=== PATIENT | male | born 1970 | race Caucasian/White ===

== ENCOUNTER 2017-09-17 01:33 | Emergency (ER) | payer MEDICARE ==
[2017-09-17] MEDS ORDERED: Permethrin 5% Cream 60 GM TUBE TOP SCH (02:15)
[2017-09-17] MEDS ORDERED: Acetaminophen 500 MG TAB ONE (11:22)
[2017-09-17] MEDS ORDERED: Ibuprofen 200 MG TAB ONE (16:21)
[2017-09-17] MEDS ORDERED: Ketorolac Tromethamine 60 MG/2 ML VIAL ONE (17:03)
[2017-09-17] MEDS ORDERED: Lorazepam 2 MG/ML VIAL ONE (17:19)
--- NOTE | 2017-09-17 17:55 | CT ---
CT OF THE CERVICAL SPINE WITHOUT CONTRAST 09/17/17 COMPARISON: 10/23/09 HISTORY: Fall in shower with C-spine pain. TECHNIQUE: Multiple contiguous axial images were obtained in a CT of the cervical spine without contrast. Sagitt al and coronal reformats were performed. FINDINGS: There are moderate degenerative changes in the lower cervical spine with intervertebral disc space na rrowing. There is a lucency seen in the left aspect of the C2 ring. This appears well corticated and is likely chronic and likely does not represent an acute fracture. More inferiorly at the C4 level, t here are bilateral lucencies through the posterior elements. These also appear corticated and are non specific. These likely do not represent acute fractures. The lucencies seen on this exam are stable c ompared to the exam from 2009. No other fractures are seen in the cervical spine. No prevertebral sof t tissue swelling is seen. The posterior facets are well aligned. Normal alignment of the skull base with the cervical spine is seen. IMPRESSION: Abnormalities in the posterior elements of C2 and C4 most likely do not represent fractures. These ar e either congenital or sequela from remote trauma. No acute fracture is identified. POS: [facility]
--- NOTE | 2017-09-17 18:11 | CT ---
CT OF THE BRAIN WITHOUT CONTRAST: 09/17/17 COMPARISON: 01/24/14 HISTORY: Fell in the shower and hit head with headache. TECHNIQUE: Multiple contiguous axial images were obtained in a CT of the brain without contrast. FINDINGS: The brain is normal in morphology and attenuation without focal lesions or confluent areas of infarct ion. There is no evidence of hydrocephalus, intracranial hemorrhage or extra-axial fluid collection. The calvarium and overlying soft tissues are unremarkable. The visualized paranasal sinuses and masto id air cells are well aerated. IMPRESSION: No evidence of acute intracranial abnormality. POS: [facility]
--- NOTE | 2017-09-17 18:22 | RAD ---
SINGLE VIEW OF THE CHEST 09/17/17 COMPARISON: Chest x-ray and rib series of 09/12/17. HISTORY: Fall in shower with left rib pain. FINDINGS: Single view of the chest shows a normal sized cardiomediastinal silhouette. There is no evidence of c onsolidation, mass, pneumothorax or pleural effusion. One of the patient's left rib fractures is able to be visualized. IMPRESSION: Unchanged left rib fracture without acute cardiopulmonary disease. POS: [facility]
== END 2017-09-17 18:56 ==
LOC: ERS 01:33
DX: R45.851 Suicidal ideations (principal); B86 Scabies; K21.9 Gastro-esophageal reflux disease without esophagitis; F31.9 Bipolar disorder, unspecified; F20.9 Schizophrenia, unspecified; F17.290 Nicotine dependence, other tobacco product, uncomplicated
CPT/HCPCS: 70450; 71045; 72125; 96372; J1885; J2060

== ENCOUNTER 2017-10-25 07:29 | Inpatient (IN) | payer MEDICARE, SELFPAY ==
[2017-10-25 08:06] LABS: #Basophils 0.1 thou/uL (0.0-0.2); #Eosinphils 0.1 thou/uL (0.0-0.7); #Lymphocytes 2.3 thou/uL (1.20-3.40); #Monocytes 1.4 thou/uL (0.11-0.59); #Neutrophils 8.2 thou/uL (1.40-6.50); %Basophils 0.7 % (0.0-1.0); %Lymphocytes 19.2 % (21.0-51.0); %Monocytes 11.3 % (0.0-10.0); %Neutrophils 67.8 % (42.0-75.0); Hemoglobin 14.6 g/dL (14.0-18.0); Mean Corpuscular HGB CONC 34.2 g/dL (32.0-36.0); Mean Corpuscular Hemoglobin 33.7 pg (27.0-31.0); Mean Corpuscular Volume 98.4 fL (78.0-98.0); Mean Platelet Volume 7.5 fL (7.4-10.4); Platelet Count 283 thou/uL (130-400); RBC Distribution Width 11.5 % (11.5-14.5); Red Blood Cell (RBC) Count 4.34 mill/uL (4.70-6.10); White Blood Cell (WBC) Count 12.1 thou/uL (4.8-10.8)
[2017-10-25] MEDS ORDERED: Permethrin 5% Cream 60 GM TUBE TOP SCH (08:15)
[2017-10-25 08:36] LABS: ALT (SGPT) 107 U/L (8-55); AST (SGOT) 89 U/L (5-34); Acetaminophen Less than 6.0 mcg/mL (10.0-30.0); Albumin 4.6 g/dL (3.5-5.0); Alcohol Less than 10 mg/dL (Less than 10); Alkaline Phosphatase 110 U/L (40-150); Anion Gap 13 mmol/L (10-20); BUN (Urea Nitrogen) 27 mg/dL (8.9-20.6); Bilirubin, Total 1.4 mg/dL (0.2-1.2); CK (CPK) 1046 U/L (30-200); Calc. Creatinine Clearance 0 mL/min (70-130); Calcium 9.8 mg/dL (7.8-10.44); Carbon Dioxide 25 mmol/L (22-29); Chloride 96 mmol/L (98-107); Estimated GFR-MDRD 82; Globulin 4.1 g/dL (2.4-3.5); Glucose 97 mg/dL (70-105); Potassium 3.4 mmol/L (3.5-5.1); Protein, Total 8.7 g/dL (6.0-8.3); Salicylate Less than 8.0 mg/dL (15.0-30.0); Sodium 131 mmol/L (136-145)
[2017-10-25 09:06] LABS: Bilirubin Negative (Negative); Blood, Urine Negative (Negative); Clarity CLEAR (Clear); Glucose, Urine (Dipstick) Negative (Negative); Leukocyte Negative (Negative); Nitrite Negative (Negative); Protein, Urine (Dipstick) 30 mg/dL (Neg-Trace); Specific Gravity, Urine 1.022 (1.002-1.036)
[2017-10-25 09:09] LABS: Bacteria/HPF None Seen HPF (None Seen); Hyaline Casts/LPF 4-6 HYALINE CAST LPF (0-3 Hyaline); Pathc Cast-AUWi Flag 0.58 (0-2.49); Squamous Epithelial None Seen HPF (0-3); WBC/HPF 0-3 HPF (0-3)
--- NOTE | 2017-10-25 09:13 | ULT ---
ULTRASOUND WITH DOPPLER DUPLEX VENOUS LOWER EXTREMITY LEFT CPT: 36302 ICD-10-PCS: [id number] HISTORY: Left leg edema, erythema. TECHNIQUE: Color flow Doppler, spectral waveform analysis of pulsed Doppler, and regan-scale imaging with dave elizabeth and augmentation, were used to evaluate the bilateral common femoral, femoral, popliteal, racing car driver ior tibial, and superficial femoral, veins; and the proximal portions of the profunda femoral and gre ater saphenous, veins. FINDINGS: Appropriate compressibility and flow within the imaged deep vein system of left lower extremity. Inc idental note of lymph nodes. IMPRESSION: 1. No deep vein thrombosis of the left lower extremity. 2. Incidental note of lymph nodes. Recommend clinical correlation in this regard. POS: [facility]
[2017-10-25] MEDS ORDERED: cefTRIAXone\\ROCEPHIN 2 GM VIAL ONE (09:23)
[2017-10-25 11:52] VITALS: BMI 20.9
[2017-10-25 12:12] LABS: Amphetamine Detected (NotDetected); Barbiturates Screen Not Detected (NotDetected); Benzodiazepine Screen Not Detected (NotDetected); Cocaine Metabolite Screen Detected (NotDetected); Medtox Control Line Valid? VALID (VALID); Medtox Reader # READER 1; Methadone Not Detected (NotDetected); Methamphetamine Detected (NotDetected); Opiate Screen Not Detected (NotDetected); Oxycodone Screen Not Detected (NotDetected); Phencyclidine (PCP) Not Detected (NotDetected); THC/Cannabinoid Screen Detected (NotDetected); Tricyclic Screen Detected (NotDetected)
[2017-10-25] MEDS ORDERED: Vancomycin HCl 1.5 GM in Sodium Chloride 0.9% 250 ML 300 ML IVPB SCH (13:00)
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
[2017-10-25] MEDS: Piperacillin/Tazobactam 3.375 GM in Sodium Chloride 0.9% 100 ML IVPB SCH ×3 (13:58→20:57)
[2017-10-25] MEDS: Sodium Chloride 0.9% 1,000 ML IV SCH ×2 (13:58→16:50)
[2017-10-25] MEDS: diphenhydrAMINE 25 MG CAP PO PRN (17:30)
[2017-10-26] MEDS: Vancomycin HCl 1 GM in Premix Bag 1 BAG IVPB SCH ×2 (00:50→12:13)
[2017-10-26] MEDS: Piperacillin/Tazobactam 3.375 GM in Sodium Chloride 0.9% 100 ML IVPB SCH ×4 (02:53→21:36)
[2017-10-26 05:05] LABS: #Eosinphils 0.3 thou/uL (0.0-0.7); #Lymphocytes 1.9 thou/uL (1.20-3.40); #Monocytes 0.9 thou/uL (0.11-0.59); #Neutrophils 4.8 thou/uL (1.40-6.50); %Basophils 0.4 % (0.0-1.0); %Eosinophils 3.6 % (0.0-10.0); %Lymphocytes 23.8 % (21.0-51.0); %Neutrophils 61.2 % (42.0-75.0); Hemoglobin 13.1 g/dL (14.0-18.0); Mean Corpuscular Volume 99.8 fL (78.0-98.0); Mean Platelet Volume 7.4 fL (7.4-10.4); Platelet Count 249 thou/uL (130-400); RBC Distribution Width 11.4 % (11.5-14.5); Red Blood Cell (RBC) Count 3.98 mill/uL (4.70-6.10); White Blood Cell (WBC) Count 7.9 thou/uL (4.8-10.8)
[2017-10-26 05:26] LABS: Anion Gap 9 mmol/L (10-20); BUN (Urea Nitrogen) 11 mg/dL (8.9-20.6); Calc. Creatinine Clearance 99 mL/min (70-130); Calcium 8.5 mg/dL (7.8-10.44); Carbon Dioxide 25 mmol/L (22-29); Chloride 104 mmol/L (98-107); Estimated GFR-MDRD Greater than 90; Glucose 85 mg/dL (70-105); Potassium 3.2 mmol/L (3.5-5.1); Sodium 135 mmol/L (136-145)
[2017-10-26] MEDS: diphenhydrAMINE 25 MG CAP PO PRN ×3 (08:23→21:37)
--- NOTE | 2017-10-26 14:33 | PDOC.PN ---
- Subjective Encounter Start Date: 10/26/17 Encounter Start Time: 14:25 Subjective: f/u for cellulitis LE's on Zosyn and Vancomycin. Still with some redness -: and itching. States he was "shooting up" in LE's with drugs. - Objective MAR Reviewed: Yes Vital Signs & Weight: Vital Signs (12 hours) Temp Pulse Resp BP Pulse Ox 10/26/17 08:25 98.4 F 64 16 99 10/26/17 07:26 98.4 F 64 16 107/57 L 99 I&O: 10/25/17 10/26/17 10/27/17 06:59 06:59 06:59 Intake Total 1130 Balance 1130 Result Diagrams: 10/26/17 04:33 10/26/17 04:33 Additional Labs: Microbiology 10/25/17 07:55 Venous blood - Right Hand Blood Culture - Preliminary Specimen has been received and culture in progress. No Growth to date. 10/25/17 07:55 Venous blood - Right Arm Blood Culture - Preliminary Specimen has been received and culture in progress. No Growth to date. Laboratory Tests 10/25/17 10/25/17 10/25/17 07:57 07:57 07:57 WBC 12.1 H Sodium 131 L Potassium 3.4 L Total Bilirubin 1.4 H AST 89 H ALT 107 H Creatine Kinase 1046 H TSH 3rd Generation 0.6441 Ur Tricyclics Screen Ur Amphetamines Screen U Methamphetamines Scrn U Cocaine Metab Screen U Cannabinoids Screen 10/25/17 08:58 WBC Sodium Potassium Total Bilirubin AST ALT Creatine Kinase TSH 3rd Generation Ur Tricyclics Screen Detected H Ur Amphetamines Screen Detected H U Methamphetamines Scrn Detected H U Cocaine Metab Screen Detected H U Cannabinoids Screen Detected H Radiology Reviewed by me: Yes (BLE venous dopp - neg for DVT) Phys Exam - Physical Examination Constitutional: NAD HEENT: PERRLA, sclera anicteric, oral pharynx no lesions Neck: no nodes, no JVD, supple, full ROM Respiratory: no wheezing, no rales, no rhonchi, clear to auscultation bilateral S1, S2 Cardiovascular: RRR, no significant murmur, no rub, gallop Gastrointestinal: soft, non-tender, no distention, positive bowel sounds Musculoskeletal: pulses present, edema present Neurological: normal sensation, moves all 4 limbs Psychiatric: normal affect, A&O x 3 Deviation from normal: LE erythema diffusely below the knees, small puncture sites noted multiple tattoos noted Skin: cap refill <2 seconds Dx/Plan (1) Bilateral lower leg cellulitis Code(s): L03.116 - CELLULITIS OF LEFT LOWER LIMB; L03.115 - CELLULITIS OF RIGHT LOWER LIMB Status: Acute Comment: Continue Zosyn and Vancomycin, local skin care (2) Polysubstance abuse Code(s): F19.10 - OTHER PSYCHOACTIVE SUBSTANCE ABUSE, UNCOMPLICATED Status: Acute Comment: [facility] consult for resources (3) Scabies Status: Acute Comment: s/p Permethrin, contact precautions (4) Suicidal ideation Code(s): R45.851 - SUICIDAL IDEATIONS Status: Acute Comment: Sitter 1:1, [facility] evaluation 10/27/17 (5) Rhabdomyolysis Code(s): M62.82 - RHABDOMYOLYSIS Status: Acute Comment: Secondary to IV drug use, continue IVF's, repeat CPK in am (6) Hyponatremia Code(s): E87.1 - HYPO-OSMOLALITY AND HYPONATREMIA Status: Acute Comment: Likely chronic due to ETOH abuse, serial monitoring (7) Hypokalemia Code(s): E87.6 - HYPOKALEMIA Status: Acute Comment: K-Dur 40meq BID, repeat K+ level in am - Plan continue antibiotics, PT/OT, 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
[2017-10-26] MEDS: Potassium Chloride 20 MEQ TAB PO SCH (16:27)
[2017-10-26] MEDS: Nicotine 21 MG PATCH TD SCH (16:28)
[2017-10-26] MEDS ORDERED: Lorazepam 1 MG TAB PO SCH (19:15)
[2017-10-26] MEDS: Cyclobenzaprine 10 MG TAB PO PRN (21:37)
[2017-10-27 00:51] LABS: Vancomycin, Trough 9.8 ug/mL
[2017-10-27] MEDS: Lorazepam 1 MG TAB PO SCH ×5 (01:11→23:45)
[2017-10-27] MEDS: Vancomycin HCl 1 GM in Premix Bag 1 BAG IVPB SCH ×3 (01:11→18:37)
[2017-10-27] MEDS ORDERED: VANCOMYCIN IVPB PRN (01:42)
[2017-10-27] MEDS: Piperacillin/Tazobactam 3.375 GM in Sodium Chloride 0.9% 100 ML IVPB SCH ×2 (04:47→11:03)
[2017-10-27 06:35] LABS: ALT (SGPT) 46 U/L (8-55); AST (SGOT) 31 U/L (5-34); Albumin 3.3 g/dL (3.5-5.0); Alkaline Phosphatase 72 U/L (40-150); Anion Gap 11 mmol/L (10-20); BUN (Urea Nitrogen) 7 mg/dL (8.9-20.6); Bilirubin, Total 0.5 mg/dL (0.2-1.2); CK (CPK) 149 U/L (30-200); Calc. Creatinine Clearance 102 mL/min (70-130); Calcium 8.4 mg/dL (7.8-10.44); Carbon Dioxide 24 mmol/L (22-29); Chloride 106 mmol/L (98-107); Estimated GFR-MDRD Greater than 90; Globulin 2.9 g/dL (2.4-3.5); Glucose 93 mg/dL (70-105); Potassium 3.5 mmol/L (3.5-5.1); Protein, Total 6.2 g/dL (6.0-8.3); Sodium 137 mmol/L (136-145)
[2017-10-27 06:44] LABS: Band 1 % (5-11); Eosinophils 8 % (0-10); Hemoglobin 12.5 g/dL (14.0-18.0); Lymphocytes 30 % (21-51); MDiff Complete? YES; Mean Corpuscular HGB CONC 34.7 g/dL (32.0-36.0); Mean Corpuscular Hemoglobin 34.3 pg (27.0-31.0); Mean Corpuscular Volume 98.9 fL (78.0-98.0); Mean Platelet Volume 7.6 fL (7.4-10.4); Monocytes 8 % (0-10); Neutrophil 52 % (42-75); Platelet Count 243 thou/uL (130-400); RBC Distribution Width 11.5 % (11.5-14.5); Red Blood Cell (RBC) Count 3.66 mill/uL (4.70-6.10)
[2017-10-27] MEDS: Potassium Chloride 20 MEQ TAB PO SCH (08:03)
[2017-10-27] MEDS: diphenhydrAMINE 25 MG CAP PO PRN ×2 (08:21→18:37)
--- NOTE | 2017-10-27 11:59 | PDOC.PN ---
- Subjective Encounter Start Date: 10/27/17 Encounter Start Time: 11:45 Subjective: f/u for bilat LE cellulitis after IVDU. Tx with Vancomycin/Zosyn -: and feels better overall. Ambulating, eating appropriately. No fever -: or chills. - Objective MAR Reviewed: Yes Vital Signs & Weight: Vital Signs (12 hours) Temp Pulse Resp BP Pulse Ox 10/27/17 08:00 97.9 F 76 18 98 10/27/17 07:21 97.9 F 76 18 116/76 98 10/27/17 01:13 98.4 F 72 16 107/66 99 I&O: 10/26/17 10/27/17 10/28/17 06:59 06:59 06:59 Intake Total 1130 375 Balance 1130 375 Result Diagrams: 10/27/17 04:43 10/27/17 05:54 Additional Labs: Microbiology 10/25/17 07:55 Venous blood - Right Hand Blood Culture - Preliminary Specimen has been received and culture in progress. No Growth to date. 10/25/17 07:55 Venous blood - Right Arm Blood Culture - Preliminary Specimen has been received and culture in progress. No Growth to date. Laboratory Tests 10/25/17 10/25/17 10/25/17 07:57 07:57 07:57 WBC 12.1 H Sodium 131 L Potassium 3.4 L Total Bilirubin 1.4 H AST 89 H ALT 107 H Creatine Kinase 1046 H TSH 3rd Generation 0.6441 Ur Tricyclics Screen Ur Amphetamines Screen U Methamphetamines Scrn U Cocaine Metab Screen U Cannabinoids Screen 10/25/17 08:58 WBC Sodium Potassium Total Bilirubin AST ALT Creatine Kinase TSH 3rd Generation Ur Tricyclics Screen Detected H Ur Amphetamines Screen Detected H U Methamphetamines Scrn Detected H U Cocaine Metab Screen Detected H U Cannabinoids Screen Detected H Phys Exam - Physical Examination Constitutional: NAD HEENT: PERRLA, sclera anicteric, oral pharynx no lesions Neck: no nodes, no JVD, supple, full ROM Respiratory: no wheezing, no rales, no rhonchi, clear to auscultation bilateral S1, S2 Cardiovascular: RRR, no significant murmur, no rub, gallop Gastrointestinal: soft, non-tender, no distention, positive bowel sounds mild edema LE's Musculoskeletal: pulses present Neurological: non-focal, normal sensation, moves all 4 limbs Psychiatric: normal affect, A&O x 3 Deviation from normal: multiple punctate areas on lower extremities Skin: normal turgor, cap refill <2 seconds Dx/Plan (1) Bilateral lower leg cellulitis Code(s): L03.116 - CELLULITIS OF LEFT LOWER LIMB; L03.115 - CELLULITIS OF RIGHT LOWER LIMB Status: Acute Comment: Start Augmentin 875mg BID, d/c Vanc/Zosyn , local skin care (2) Polysubstance abuse Code(s): F19.10 - OTHER PSYCHOACTIVE SUBSTANCE ABUSE, UNCOMPLICATED Status: Acute Comment: [facility] consult for resources, recommendations for inpatient psych care and awaiting [place] approval (3) Scabies Status: Acute Comment: s/p Permethrin, contact precautions (4) Suicidal ideation Code(s): R45.851 - SUICIDAL IDEATIONS Status: Acute Comment: Sitter 1:1, [facility] evaluation recommends inpt psych (5) Rhabdomyolysis Code(s): M62.82 - RHABDOMYOLYSIS Status: Acute Comment: Secondary to IV drug use, resolving (6) Hyponatremia Code(s): E87.1 - HYPO-OSMOLALITY AND HYPONATREMIA Status: Acute Comment: Likely chronic due to ETOH abuse, serial monitoring (7) Hypokalemia Code(s): E87.6 - HYPOKALEMIA Status: Acute Comment: K-Dur 40meq BID, resolving, d/c KCL - 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
[2017-10-27] MEDS: Nicotine 21 MG PATCH TD SCH (15:48)
[2017-10-27] MEDS: Piperacillin/Tazobactam 3.375 GM, Admixture Fee 1 EACH in Sodium Chloride 0.9% 100 ML IVPB SCH ×2 (17:49→23:44)
[2017-10-28 00:46] LABS: Vancomycin, Trough 55.6 ug/mL
[2017-10-28] MEDS: Vancomycin HCl 1 GM in Premix Bag 1 BAG IVPB SCH (00:50)
[2017-10-28] MEDS: Piperacillin/Tazobactam 3.375 GM, Admixture Fee 1 EACH in Sodium Chloride 0.9% 100 ML IVPB SCH ×3 (05:50→15:46)
[2017-10-28] MEDS: Lorazepam 1 MG TAB PO SCH ×4 (05:50→23:53)
[2017-10-28] MEDS: diphenhydrAMINE 25 MG CAP PO PRN ×2 (10:05→21:04)
--- NOTE | 2017-10-28 13:35 | DIS ---
DATE OF ADMISSION: 10/25/2017 DATE OF DISCHARGE: 10/27/2017 DISCHARGE DIAGNOSES: 1. Bilateral lower extremity cellulitis, secondarily to IV drug use. 2. Polysubstance abuse including amphetamines, cocaine, and cannabinoids. 3. Question of scabies, treated with permethrin. 4. Suicidal ideation.
[2017-10-28] MEDS: Nicotine 21 MG PATCH TD SCH (15:46)
--- NOTE | 2017-10-28 17:04 | PDOC.PN ---
- Subjective Encounter Start Date: 10/28/17 Encounter Start Time: 17:02 Feels like his legs are doing better. Itching. - Objective Vital Signs & Weight: Vital Signs (12 hours) Temp Pulse Resp BP Pulse Ox 10/28/17 08:00 97.9 F 79 16 99 10/28/17 07:18 97.9 F 79 16 115/77 100 I&O: 10/27/17 10/28/17 10/29/17 06:59 06:59 06:59 Intake Total 375 1320 360 Balance 375 1320 360 Result Diagrams: 10/27/17 04:43 10/27/17 05:54 Phys Exam - Physical Examination Constitutional: NAD Neck: no JVD, supple Respiratory: no wheezing, no rales, no rhonchi, clear to auscultation bilateral Cardiovascular: RRR, no significant murmur Patchy B LE erythema from mid-calf to lower thigh. Posterion on left, anterior on right. Psychiatric: normal affect, A&O x 3 Dx/Plan (1) Bilateral lower leg cellulitis Code(s): L03.116 - CELLULITIS OF LEFT LOWER LIMB; L03.115 - CELLULITIS OF RIGHT LOWER LIMB Status: Acute Comment: Start Augmentin 875mg BID, d/c Vanc/Zosyn , local skin care (2) Polysubstance abuse Code(s): F19.10 - OTHER PSYCHOACTIVE SUBSTANCE ABUSE, UNCOMPLICATED Status: Acute Comment: [facility] consult for resources, recommendations for inpatient psych care and awaiting [place] approval (3) Suicidal ideation Code(s): R45.851 - SUICIDAL IDEATIONS Status: Acute Comment: Sitter 1:1, [facility] evaluation recommends inpt psych - Plan * Change to po abx. * Await [facility] placement. * Attempt to clarify and resume his home psych meds.
[2017-10-28] MEDS: Amoxicillin/Potassium Clav 875 MG TAB PO SCH (21:04)
[2017-10-29 00:39] LABS: Vancomycin, Random 4.4 ug/mL (See Comment)
[2017-10-29] MEDS ORDERED: Vancomycin HCl 1 GM in Premix Bag 1 BAG IVPB SCH (01:00)
[2017-10-29] MEDS: Lorazepam 1 MG TAB PO SCH ×5 (06:20→23:26)
[2017-10-29] MEDS: diphenhydrAMINE 25 MG CAP PO PRN ×2 (07:35→21:05)
[2017-10-29] MEDS: Amoxicillin/Potassium Clav 875 MG TAB PO SCH ×2 (07:35→21:06)
--- NOTE | 2017-10-29 08:35 | PDOC.PN ---
- Subjective Encounter Start Date: 10/29/17 Encounter Start Time: 08:33 Feels like his legs are a little better. - Objective Vital Signs & Weight: Vital Signs (12 hours) Temp Pulse Resp BP Pulse Ox 10/29/17 07:37 98.0 F 71 18 145/93 H 99 I&O: 10/28/17 10/29/17 10/30/17 06:59 06:59 06:59 Intake Total 1320 600 Balance 1320 600 Result Diagrams: 10/27/17 04:43 10/27/17 05:54 Phys Exam - Physical Examination Constitutional: NAD Respiratory: no wheezing, no rales, no rhonchi, clear to auscultation bilateral Cardiovascular: RRR, no significant murmur Gastrointestinal: soft, non-tender, no distention Deviation from normal: Patchy erythema of both LE's. Posteriorly on the left and more anterior on -: the right. Looks reactive. Less intense than yesterday. Dx/Plan (1) Bilateral lower leg cellulitis Code(s): L03.116 - CELLULITIS OF LEFT LOWER LIMB; L03.115 - CELLULITIS OF RIGHT LOWER LIMB Status: Acute Comment: Start Augmentin 875mg BID, d/c Vanc/Zosyn , local skin care (2) Polysubstance abuse Code(s): F19.10 - OTHER PSYCHOACTIVE SUBSTANCE ABUSE, UNCOMPLICATED Status: Acute Comment: [facility] consult for resources, recommendations for inpatient psych care and awaiting [place] approval (3) Suicidal ideation Code(s): R45.851 - SUICIDAL IDEATIONS Status: Acute Comment: Sitter 1:1, [facility] evaluation recommends inpt psych (4) Scabies Status: Acute Comment: s/p Permethrin on 10/25/17, contact precautions - Plan * Attempting to clarify the patient's home psych meds.
[2017-10-29] MEDS: Nicotine 21 MG PATCH TD SCH (14:51)
[2017-10-29] MEDS: Gabapentin 400 MG CAP PO SCH (21:06)
[2017-10-29] MEDS: carBAMazepine 100 mg Chewable Tablet PO SCH (21:44)
[2017-10-29] MEDS: clonazePAM 1 MG TAB PO SCH (21:44)
[2017-10-30] MEDS: Lorazepam 1 MG TAB PO SCH ×3 (05:43→17:50)
[2017-10-30] MEDS: carBAMazepine 100 mg Chewable Tablet PO SCH ×2 (08:03→22:56)
[2017-10-30] MEDS: Gabapentin 400 MG CAP PO SCH ×3 (08:03→22:56)
[2017-10-30] MEDS: Amitriptyline HCl 25 MG TAB PO SCH (08:03)
[2017-10-30] MEDS: Amoxicillin/Potassium Clav 875 MG TAB PO SCH ×2 (08:03→22:55)
[2017-10-30] MEDS: clonazePAM 1 MG TAB PO SCH ×2 (08:03→22:56)
[2017-10-30] MEDS: Bupropion 150 MG XL TAB PO SCH (08:04)
--- NOTE | 2017-10-30 13:27 | PDOC.PN ---
- Subjective Encounter Start Date: 10/30/17 Encounter Start Time: 10:45 Doing well. No new complaints. Left posterior calf area is the only area that continues to bother him. Itches more than hurts. - Objective Vital Signs & Weight: Vital Signs (12 hours) Temp Pulse Resp BP Pulse Ox 10/30/17 08:25 99.2 F 85 16 144/98 H 99 10/30/17 08:00 99.2 F 85 16 98 I&O: 10/29/17 10/30/17 10/31/17 06:59 06:59 06:59 Intake Total 600 1080 360 Balance 600 1080 360 Result Diagrams: 10/27/17 04:43 10/27/17 05:54 Phys Exam - Physical Examination Constitutional: NAD Respiratory: no wheezing, clear to auscultation bilateral Cardiovascular: RRR, no significant murmur Gastrointestinal: soft, non-tender, no distention, positive bowel sounds Musculoskeletal: no edema Deviation from normal: Persistent splotchy erythema with minimal Dx/Plan (1) Bilateral lower leg cellulitis Code(s): L03.116 - CELLULITIS OF LEFT LOWER LIMB; L03.115 - CELLULITIS OF RIGHT LOWER LIMB Status: Acute Comment: Start Augmentin 875mg BID, d/c Vanc/Zosyn , local skin care (2) Polysubstance abuse Code(s): F19.10 - OTHER PSYCHOACTIVE SUBSTANCE ABUSE, UNCOMPLICATED Status: Acute Comment: [facility] consult for resources, recommendations for inpatient psych care and awaiting [place] approval (3) Suicidal ideation Code(s): R45.851 - SUICIDAL IDEATIONS Status: Acute Comment: Sitter 1:1, [facility] evaluation recommends inpt psych. Patient reports that he runs out of his psych meds and then starts using street drugs. That is when he decompensates and gets suicidal. When asked if he is still suicidal, he says he wants to get somewhere to get himself "straightened out". (4) Scabies Status: Acute Comment: s/p Permethrin on 10/25/17, contact precautions - Plan * Awaiting bed at [facility].
[2017-10-30] MEDS: Nicotine 21 MG PATCH TD SCH (14:51)
[2017-10-30] MEDS: diphenhydrAMINE 25 MG CAP PO PRN (21:51)
[2017-10-31] MEDS: Lorazepam 1 MG TAB PO SCH ×6 (01:28→23:00)
[2017-10-31] MEDS: diphenhydrAMINE 25 MG CAP PO PRN (06:20)
[2017-10-31] MEDS: Bupropion 150 MG XL TAB PO SCH (08:06)
[2017-10-31] MEDS: Gabapentin 400 MG CAP PO SCH ×3 (08:06→20:00)
[2017-10-31] MEDS: Amoxicillin/Potassium Clav 875 MG TAB PO SCH ×2 (08:06→20:00)
[2017-10-31] MEDS: clonazePAM 1 MG TAB PO SCH ×2 (08:06→20:00)
[2017-10-31] MEDS: carBAMazepine 100 mg Chewable Tablet PO SCH ×2 (08:06→20:00)
[2017-10-31] MEDS: Amitriptyline HCl 25 MG TAB PO SCH ×2 (08:07→23:00)
[2017-10-31] MEDS: Cyclobenzaprine 10 MG TAB PO PRN (10:52)
[2017-10-31] MEDS ORDERED: clonazePAM 1 MG TAB PO SCH (11:30)
[2017-10-31] MEDS: Nicotine 21 MG PATCH TD SCH (14:55)
--- NOTE | 2017-10-31 15:26 | PDOC.PN ---
- Subjective Encounter Start Date: 10/31/17 Encounter Start Time: 12:00 Complains of increased anxiety. Wants the Klonopin at 2 mg. Was pacing the halls and getting upset this morning. Gave an additional Klonopin and he did settle down. - Objective Vital Signs & Weight: Vital Signs (12 hours) Temp Pulse Resp BP Pulse Ox 10/31/17 08:00 97.1 F L 91 16 10/31/17 07:43 97.1 F L 91 16 135/90 100 I&O: 10/30/17 10/31/17 11/01/17 06:59 06:59 06:59 Intake Total 1080 1080 480 Balance 1080 1080 480 Result Diagrams: 10/27/17 04:43 10/27/17 05:54 Phys Exam - Physical Examination Constitutional: NAD Neck: supple, full ROM Respiratory: no wheezing, no rales, no rhonchi Cardiovascular: RRR, no significant murmur Deviation from normal: Much improved from yesteday. Far less erythema on left and basically -: resolved on the right. Faint left popliteal area erythema. Dx/Plan (1) Bilateral lower leg cellulitis Code(s): L03.116 - CELLULITIS OF LEFT LOWER LIMB; L03.115 - CELLULITIS OF RIGHT LOWER LIMB Status: Acute Comment: Start Augmentin 875mg BID, local skin care. Much improved. (2) Polysubstance abuse Code(s): F19.10 - OTHER PSYCHOACTIVE SUBSTANCE ABUSE, UNCOMPLICATED Status: Acute Comment: [facility] consult for resources, recommendations for inpatient psych care and awaiting [place] approval (3) Suicidal ideation Code(s): R45.851 - SUICIDAL IDEATIONS Status: Acute Comment: Sitter 1:1, [facility] evaluation recommends inpt psych. Patient reports that he runs out of his psych meds and then starts using street drugs. That is when he decompensates and gets suicidal. When asked if he is still suicidal, he says he wants to get somewhere to get himself "straightened out". (4) Scabies Status: Acute Comment: s/p Permethrin on 10/25/17, contact precautions. Repeat Permethrin 11/01/17. - Plan * Medically stable for discharge for several days. Awaiting placement. Request [facility] reassessment.
[2017-11-01] MEDS: Lorazepam 1 MG TAB PO SCH ×4 (05:14→20:39)
--- NOTE | 2017-11-01 06:34 | PDOC.EVN ---
Event Note - Event Note Event Note: pt needs to be admitted inpatient but no bed per mental health. she is working on it.
[2017-11-01] MEDS: Bupropion 150 MG XL TAB PO SCH (08:06)
[2017-11-01] MEDS: Amoxicillin/Potassium Clav 875 MG TAB PO SCH ×2 (08:08→19:38)
[2017-11-01] MEDS: carBAMazepine 100 mg Chewable Tablet PO SCH ×2 (08:09→19:38)
[2017-11-01] MEDS: clonazePAM 1 MG TAB PO SCH ×2 (08:09→19:37)
[2017-11-01] MEDS: Gabapentin 400 MG CAP PO SCH ×3 (08:10→19:37)
[2017-11-01] MEDS: Nicotine 21 MG PATCH TD SCH (08:11)
[2017-11-01] MEDS: Ibuprofen 200 MG TAB PO PRN (12:41)
[2017-11-01] MEDS ORDERED: Permethrin 5% Cream 60 GM TUBE TOP SCH (13:00)
--- NOTE | 2017-11-01 15:12 | PDOC.PN ---
- Subjective Encounter Start Date: 11/01/17 Encounter Start Time: 12:45 Legs are doing very well. He asked the nurse for something for sleep, but told me he did not want anything. He says this is just one of his manic episodes and he will eventually crash. - Objective Vital Signs & Weight: Vital Signs (12 hours) Temp Pulse Resp BP Pulse Ox 11/01/17 08:00 98.4 F 97 16 99 11/01/17 07:39 98.4 F 97 16 138/88 99 I&O: 10/31/17 11/01/17 11/02/17 06:59 06:59 06:59 Intake Total 1080 3680 Balance 1080 3680 Result Diagrams: 10/27/17 04:43 10/27/17 05:54 Phys Exam - Physical Examination Constitutional: NAD Respiratory: no wheezing, no rales, no rhonchi, clear to auscultation bilateral Cardiovascular: RRR, no significant murmur Gastrointestinal: soft, non-tender, no distention, positive bowel sounds Musculoskeletal: no edema, pulses present Neurological: non-focal, normal sensation, moves all 4 limbs Deviation from normal: Eyes are a little droopy, but awake and conversant. Does not look manic. Dx/Plan (1) Bilateral lower leg cellulitis Code(s): L03.116 - CELLULITIS OF LEFT LOWER LIMB; L03.115 - CELLULITIS OF RIGHT LOWER LIMB Status: Acute Comment: Start Augmentin 875mg BID, local skin care. Much improved. (2) Polysubstance abuse Code(s): F19.10 - OTHER PSYCHOACTIVE SUBSTANCE ABUSE, UNCOMPLICATED Status: Acute Comment: [facility] consult for resources, recommendations for inpatient psych care and awaiting [place] approval (3) Suicidal ideation Code(s): R45.851 - SUICIDAL IDEATIONS Status: Acute Comment: Sitter 1:1, [facility] evaluation recommends inpt psych. Patient reports that he runs out of his psych meds and then starts using street drugs. That is when he decompensates and gets suicidal. When asked if he is still suicidal, he says he wants to get somewhere to get himself "straightened out". (4) Scabies Status: Acute Comment: s/p Permethrin on 10/25/17, contact precautions. Repeated Permethrin on 11/01/17. - Plan * Medically stable for several days. Awaiting placement at an inpatient psych facility.
[2017-11-01] MEDS: diphenhydrAMINE 25 MG CAP PO PRN (20:39)
[2017-11-01] MEDS ORDERED: Lorazepam 1 MG TAB PO SCH ×2 (20:45→23:15)
[2017-11-01] MEDS: Amitriptyline HCl 25 MG TAB PO SCH (23:34)
[2017-11-02] MEDS: diphenhydrAMINE 25 MG CAP PO PRN ×3 (06:29→23:12)
[2017-11-02] MEDS: Lorazepam 1 MG TAB PO SCH ×4 (06:30→23:04)
[2017-11-02] MEDS: Gabapentin 400 MG CAP PO SCH ×3 (08:07→21:11)
[2017-11-02] MEDS: clonazePAM 1 MG TAB PO SCH ×2 (08:07→21:11)
[2017-11-02] MEDS: Amoxicillin/Potassium Clav 875 MG TAB PO SCH ×2 (08:07→21:11)
[2017-11-02] MEDS: Bupropion 150 MG XL TAB PO SCH (08:08)
[2017-11-02] MEDS: carBAMazepine 100 mg Chewable Tablet PO SCH ×2 (08:08→21:14)
--- NOTE | 2017-11-02 09:40 | PDOC.PN ---
- Subjective Encounter Start Date: 11/02/17 Encounter Start Time: 09:39 Asking for something more to keep him "calm" during the day. - Objective Vital Signs & Weight: Vital Signs (12 hours) Temp Pulse Resp BP Pulse Ox 11/02/17 08:01 97.9 F 77 18 138/97 H 100 11/02/17 08:00 97.9 F 77 18 100 11/02/17 04:00 98.0 F 87 20 120/81 99 11/01/17 23:56 97.7 F 81 20 125/84 20 L I&O: 11/01/17 11/02/17 11/03/17 06:59 06:59 06:59 Intake Total 3680 3840 Balance 3680 3840 Result Diagrams: 10/27/17 04:43 10/27/17 05:54 Phys Exam - Physical Examination Constitutional: NAD Respiratory: no wheezing, no rales, no rhonchi Cardiovascular: RRR, no significant murmur, no rub Gastrointestinal: soft, non-tender Skin: no rash, normal turgor Dx/Plan (1) Bilateral lower leg cellulitis Code(s): L03.116 - CELLULITIS OF LEFT LOWER LIMB; L03.115 - CELLULITIS OF RIGHT LOWER LIMB Status: Acute Comment: Start Augmentin 875mg BID, local skin care. Much improved. Largely resolved. Will finish out the course of oral abx. (2) Polysubstance abuse Code(s): F19.10 - OTHER PSYCHOACTIVE SUBSTANCE ABUSE, UNCOMPLICATED Status: Acute Comment: [facility] consult for resources, recommendations for inpatient psych care and awaiting [place] approval (3) Suicidal ideation Code(s): R45.851 - SUICIDAL IDEATIONS Status: Acute Comment: Sitter 1:1, [facility] evaluation recommends inpt psych. Patient reports that he runs out of his psych meds and then starts using street drugs. That is when he decompensates and gets suicidal. When asked if he is still suicidal, he says he wants to get somewhere to get himself "straightened out". (4) Scabies Status: Acute Comment: s/p Permethrin on 10/25/17, contact precautions. Repeated Permethrin on 11/01/17. - Plan * Continues to act out, mostly in the evenings. Then he requests specific things. Appears to be very manipulative in his behavior and appears to have become worse since his psych meds were restarted. Hope to get him transferred to [facility] tomorrow.
[2017-11-02] MEDS: Cyclobenzaprine 10 MG TAB PO PRN (14:47)
[2017-11-02] MEDS: Ibuprofen 200 MG TAB PO PRN (14:47)
[2017-11-02] MEDS: Nicotine 21 MG PATCH TD SCH (14:48)
[2017-11-02] MEDS: Amitriptyline HCl 25 MG TAB PO SCH (23:04)
[2017-11-03] MEDS: Lorazepam 1 MG TAB PO SCH ×2 (05:32→11:59)
[2017-11-03] MEDS: diphenhydrAMINE 25 MG CAP PO PRN (05:32)
[2017-11-03 08:15] VITALS: BP 149/98; TEMP 97.5
[2017-11-03] MEDS: Amoxicillin/Potassium Clav 875 MG TAB PO SCH ×2 (08:44→20:09)
[2017-11-03] MEDS: Bupropion 150 MG XL TAB PO SCH (08:44)
[2017-11-03] MEDS: carBAMazepine 100 mg Chewable Tablet PO SCH (08:45)
[2017-11-03] MEDS: clonazePAM 1 MG TAB PO SCH ×2 (08:45→20:08)
[2017-11-03] MEDS: Gabapentin 400 MG CAP PO SCH ×2 (08:45→14:06)
--- NOTE | 2017-11-03 13:36 | PDOC.PN ---
- Subjective Encounter Start Date: 11/03/17 Encounter Start Time: 11:00 Subjective: is eating, ambulating and slept well last night - Objective MAR Reviewed: Yes Vital Signs & Weight: Vital Signs (12 hours) Temp Pulse Resp BP Pulse Ox 11/03/17 08:14 97.5 F L 92 18 149/98 H 100 11/03/17 08:00 97.5 F L 92 18 92 L I&O: 11/02/17 11/03/17 11/04/17 06:59 06:59 06:59 Intake Total 3840 2800 Balance 3840 2800 Result Diagrams: 10/27/17 04:43 10/27/17 05:54 Phys Exam - Physical Examination HEENT: PERRLA, moist MMs Neck: no JVD, supple Respiratory: no wheezing, no rales Cardiovascular: RRR, no significant murmur Gastrointestinal: soft, non-tender, positive bowel sounds Musculoskeletal: no edema, pulses present Neurological: non-focal, moves all 4 limbs Psychiatric: A&O x 3 Dx/Plan (1) Suicidal ideation Code(s): R45.851 - SUICIDAL IDEATIONS Status: Acute Comment: Sitter 1:1, [facility] evaluation recommends inpt psych. Patient reports that he runs out of his psych meds and then starts using street drugs. That is when he decompensates and gets suicidal. When asked if he is still suicidal, he says he wants to get somewhere to get himself "straightened out". (2) Polysubstance abuse Code(s): F19.10 - OTHER PSYCHOACTIVE SUBSTANCE ABUSE, UNCOMPLICATED Status: Acute Comment: [facility] consult for resources, recommendations for inpatient psych care and awaiting [place] approval (3) Hepatitis C Code(s): B19.20 - UNSPECIFIED VIRAL HEPATITIS C WITHOUT HEPATIC COMA Status: Chronic Qualifiers: Viral hepatitis chronicity: chronic Hepatic coma status: without hepatic coma Qualified Code(s): B18.2 - Chronic viral hepatitis C (4) Bipolar disorder Code(s): F31.9 - BIPOLAR DISORDER, UNSPECIFIED Status: Chronic Qualifiers: Active/Remission status: remission status unspecified Qualified Code(s): F31.9 - Bipolar disorder, unspecified (5) Seizure disorder Code(s): G40.909 - EPILEPSY, UNSP, NOT INTRACTABLE, WITHOUT STATUS EPILEPTICUS Status: Chronic (6) Left leg cellulitis Code(s): L03.116 - CELLULITIS OF LEFT LOWER LIMB Status: Acute (7) Scabies Status: Acute Comment: s/p Permethrin on 10/25/17, contact precautions. Repeated Permethrin on 11/01/17. (8) Alcohol abuse Code(s): F10.10 - ALCOHOL ABUSE, UNCOMPLICATED Status: Suspected - Plan hemostable -: may dc to inpt pschiatric unit anytime if accepted -: is on neurontin, dilantin, tegretol, klonopin and welbutrin -: augmentin for 5 days and dc * . Review of Systems - Medications/Allergies Allergies/Adverse Reactions: Allergies Allergy/AdvReac Type Severity Reaction Status Date / Time chlorpromazine HCl Allergy Verified 10/25/17 11:52 [From Thorazine] codeine Allergy Nausea Verified 10/25/17 11:52 haloperidol [From Haldol] Allergy Verified 10/31/17 08:05 morphine Allergy Verified 10/25/17 11:52 Medications: Current Medications Amitriptyline HCl (Elavil) 50 mg PO 2200 [facility] Amoxicillin/Clavulanate Potassium (Augmentin) 875 mg PO Q12HR [facility] Last Admin: 11/03/17 08:44 Dose: 875 mg Bupropion HCl (Wellbutrin Xl) 300 mg PO DAILY [facility] Last Admin: 11/03/17 08:44 Dose: 300 mg Carbamazepine (Tegretol) 100 mg PO BID [facility] Last Admin: 11/03/17 08:45 Dose: 100 mg Clonazepam (Klonopin) 2 mg PO BID [facility] Last Admin: 11/03/17 08:45 Dose: 2 mg Cyclobenzaprine HCl (Flexeril) 10 mg PO Q8H PRN PRN Reason: Muscle Spasm Last Admin: 11/02/17 14:47 Dose: 10 mg Diphenhydramine HCl (Benadryl) 25 mg PO Q6H PRN PRN Reason: Itching Last Admin: 11/03/17 05:32 Dose: 25 mg Gabapentin (Neurontin) 800 mg PO TID [facility] Last Admin: 11/03/17 08:45 Dose: 800 mg Ibuprofen (Motrin) 400 mg PO Q6H PRN PRN Reason: TOOTH PAIN Last Admin: 11/02/17 14:47 Dose: 400 mg Lorazepam (Ativan) 1 mg PO Q6HR [facility] Last Admin: 11/03/17 11:59 Dose: 1 mg Nicotine (Nicoderm Patch) 21 mg TD Q24H [facility] Last Admin: 11/02/17 14:48 Dose: Not Given Phenytoin Sodium (Dilantin Er) 100 mg PO TID [facility] Last Admin: 11/03/17 08:45 Dose: 100 mg
[2017-11-03] MEDS: Nicotine 21 MG PATCH TD SCH (14:07)
[2017-11-03 16:19] LABS: #Basophils 0.1 thou/uL (0.0-0.2); #Eosinphils 0.4 thou/uL (0.0-0.7); #Lymphocytes 2.7 thou/uL (1.20-3.40); #Monocytes 0.7 thou/uL (0.11-0.59); #Neutrophils 4.9 thou/uL (1.40-6.50); %Eosinophils 4.6 % (0.0-10.0); %Monocytes 7.4 % (0.0-10.0); %Neutrophils 56.1 % (42.0-75.0); Hemoglobin 12.9 g/dL (14.0-18.0); Mean Corpuscular HGB CONC 34.4 g/dL (32.0-36.0); Mean Corpuscular Hemoglobin 33.9 pg (27.0-31.0); Mean Corpuscular Volume 98.5 fL (78.0-98.0); Mean Platelet Volume 6.7 fL (7.4-10.4); Platelet Count 282 thou/uL (130-400); White Blood Cell (WBC) Count 8.8 thou/uL (4.8-10.8)
[2017-11-03 16:46] LABS: Anion Gap 12 mmol/L (10-20); BUN (Urea Nitrogen) 8 mg/dL (8.9-20.6); Calc. Creatinine Clearance 94 mL/min (70-130); Calcium 9.7 mg/dL (7.8-10.44); Carbon Dioxide 29 mmol/L (22-29); Chloride 105 mmol/L (98-107); Estimated GFR-MDRD Greater than 90; Glucose 130 mg/dL (70-105); Potassium 3.3 mmol/L (3.5-5.1); Sodium 143 mmol/L (136-145)
[2017-11-03] MEDS ORDERED: Gabapentin 300 MG CAP PO SCH (21:00)
[2017-11-03] MEDS ORDERED: Amitriptyline HCl 25 MG TAB PO SCH (22:00)
--- NOTE | 2017-11-05 04:24 | DIS ---
DATE OF ADMISSION: 10/25/2017 DATE OF DISCHARGE: 11/03/2017 DISCHARGE DISPOSITION: To inpatient psychiatric unit at [place]. PRIMARY DISCHARGE DIAGNOSES: Suicidal ideation, polysubstance abuse, bipolar disorder, left leg cell ulitis resolving, scabies on arrival got treated twice with permethrin once on the and second che lication was done on the , bipolar disorder, chronic hepatitis C, alcohol abuse, homelessness. PROCEDURES DONE DURING HOSPITALIZATION: Patient had ultrasound Doppler of left lower extremity done which showed no evidence of DVT. Blood cultures x2 no growth. Discharge white count of 8.8, H&H 12 and 37, platelet count 282 with 56% neutrophils. Discharge BUN is 8, creatinine 0.8. He had a CK le gareth of 1046 on admission with a repeat level of 149 on 10/27/2017. Urine tox screen was positive for tricyclics, amphetamine, methamphetamine, cocaine metabolites, and cannabinoids. Plasma alcohol was less than 10. DISCHARGE MEDICATIONS: Wellbutrin-XL 300 mg p.o. daily, Augmentin 875 mg p.o. twice daily for anothe r 5 days, Tegretol 100 mg twice daily, clonazepam 1 mg p.o. twice daily, gabapentin 800 mg p.o. 3 king es daily, phenytoin 100 mg p.o. 3 times daily, Elavil 50 mg p.o. daily. ALLERGIES: CHLORPROMAZINE, CODEINE, HALOPERIDOL, and MORPHINE. DISCHARGE PLAN: Patient is being discharged to inpatient psychiatric facility in [place]. BRIEF COURSE DURING HOSPITALIZATION: Patient initially got admitted on the after he was picked u p by EMS/[facility], as he was acting bizarre on the streets. On arrival in ER, patient had urine drug scr een done which showed multiple substance of abuse including amphetamine, methamphetamine, cocaine, an d marijuana. He was initially very lethargic, but patient soon turned around and revealed that he wa s suicidal. He was also found to have had scabies and was treated in the ER once and a repeat dose w as given on the . He was incidentally found to have had left lower extremity cellulitis and was treated with IV antibiotics later switched over to Augmentin. He is ambulating well. He was placed on his home medications per patient. [facility] consultation was requested and patient was accepted today to inpatient psychiatric unit in [place]. Please see a [id number] documentation on [facility] for the day of discharge. Please note, patient is medically stable for discharge.
== END 2017-11-03 22:15 | disposition short-term general hospital (02) | DRG 872 ==
LOC: ERS 07:29 → T4-B 10:38
PROVIDERS: ADMIT Internal Medicine; ATTEND Internal Medicine
DX: A41.9 Sepsis, unspecified organism (principal); L03.116 Cellulitis of left lower limb; M62.82 Rhabdomyolysis; R45.851 Suicidal ideations; L03.115 Cellulitis of right lower limb; E87.1 Hypo-osmolality and hyponatremia; F31.9 Bipolar disorder, unspecified; F20.9 Schizophrenia, unspecified; E87.6 Hypokalemia; B86 Scabies; K74.69 Other cirrhosis of liver; B19.20 Unspecified viral hepatitis C without hepatic coma; F15.10 Other stimulant abuse, uncomplicated; F14.10 Cocaine abuse, uncomplicated; F12.10 Cannabis abuse, uncomplicated; F17.210 Nicotine dependence, cigarettes, uncomplicated; Z88.5 Allergy status to narcotic agent; Z88.8 Allergy status to other drugs, medicaments and biological substances
CPT/HCPCS: 36415; 80048; 80053; 80202; 80306; 80307; 81003; 81015; 82550; 84443; 85007; 85025; 85027; 87040; 96365; J0696; J2543; J3370; J7050

== ENCOUNTER 2017-11-26 00:57 | Observation (INO) | payer MEDICARE, SELFPAY ==
[2017-11-26] MEDS ORDERED: Lorazepam 2 MG/ML VIAL ONE (01:24)
[2017-11-26 05:00] LABS: ALT (SGPT) 62 U/L (8-55); AST (SGOT) 64 U/L (5-34); Albumin 4.3 g/dL (3.5-5.0); Alcohol Less than 10 mg/dL (Less than 10); Alkaline Phosphatase 89 U/L (40-150); Anion Gap 16 mmol/L (10-20); BUN (Urea Nitrogen) 21 mg/dL (8.9-20.6); Bilirubin, Total 0.8 mg/dL (0.2-1.2); CK (CPK) 415 U/L (30-200); Calc. Creatinine Clearance 0 mL/min (70-130); Calcium 9.3 mg/dL (7.8-10.44); Carbon Dioxide 22 mmol/L (22-29); Chloride 100 mmol/L (98-107); Estimated GFR-MDRD Greater than 90; Globulin 3.3 g/dL (2.4-3.5); Glucose 78 mg/dL (70-105); Potassium 2.9 mmol/L (3.5-5.1); Protein, Total 7.6 g/dL (6.0-8.3); Sodium 135 mmol/L (136-145)
[2017-11-26 05:07] LABS: Hemoglobin 12.9 g/dL (14.0-18.0); Mean Corpuscular Hemoglobin 35.4 pg (27.0-31.0); Mean Corpuscular Volume 97.6 fL (78.0-98.0); Red Blood Cell (RBC) Count 3.63 mill/uL (4.70-6.10); White Blood Cell (WBC) Count 8.1 thou/uL (4.8-10.8)
[2017-11-26 05:08] LABS: #Eosinphils 0.2 thou/uL (0.0-0.7); #Lymphocytes 2.4 thou/uL (1.20-3.40); #Neutrophils 4.5 thou/uL (1.40-6.50); %Basophils 0.4 % (0.0-1.0); %Eosinophils 2.3 % (0.0-10.0); %Lymphocytes 29.6 % (21.0-51.0); %Neutrophils 55.7 % (42.0-75.0); Mean Corpuscular HGB CONC 36.3 g/dL (32.0-36.0); Mean Platelet Volume 6.7 fL (7.4-10.4); Platelet Count 239 thou/uL (130-400); RBC Distribution Width 12.2 % (11.5-14.5)
[2017-11-26 05:32] LABS: Troponin I Less than 0.010 ng/mL (< 0.028)
[2017-11-26 05:34] LABS: CKMB 8.3 ng/mL (0-6.6)
--- NOTE | 2017-11-26 08:41 | CT ---
PRELIMINARY REPORT/[facility]/EMERGENTY AFTER-HOURS PROCEDURE CT Cervical Spine Without Intravenous Contrast EXAM DATE/TIME: 11/26/2017 2:04 AM CLINICAL HISTORY: 47 years old, male; Pain; Neck pain; Patient HX: 47 y/o m was brought to the ed by ems due to mental status changes. He reports using meth and drinking alcohol. He has no si/hi. Ems reported that he was having auditory and visual hallucinations. TECHNIQUE: Axial computed tomography images of the cervical spine without intravenous contrast. Coronal and sagittal reformatted images were created and reviewed. COMPARISON: No relevant prior studies available. FINDINGS: Vertebrae: No fracture. Discs/Spinal canal/Neural foramina: Degenerative change. Soft tissues: Unremarkable. Lung apices: Normal. IMPRESSION: No fracture. Thank you for allowing us to participate in the care of your patient. Dictated and Authenticated by: Alessandro Benavides MD 11/26/2017 2:35 AM Central Time ([place] & [place]) FINAL REPORT BY DR. NGUYEN EMERGENCY AFTER HOURS STUDY CT CERVICAL SPINE NONCONTRAST: DATE: 11/26/17 TIME: 0205 hours HISTORY: 47-year-old male status post cervical trauma from fall. FINDINGS: There are no jumped or perched facets. There is no evidence of acute fracture. The vertebral body h eights are maintained. There is no prevertebral soft tissue swelling. There are degenerative disc c hanges and facet osteoarthrosis. Specifically, the degenerative disc disease is isolated to the C5-6 level (moderate to severe), and C6-7 (severe). The degenerative facet disease is isolated to the bila teral C2-3 facet joints (bilaterally severe). The degenerative disc disease in the rest of the levels is relatively mild. There are chronic osseous defects bilaterally at the C4 laminae and left C1 ring (close to its junction with the lateral mass). These were present on previous CTs of 10/23/09 and , and are not acute fractures. This was not mentioned in the preliminary report by [facility], but ot herwise, this report agrees with the preliminary report by [facility]. IMPRESSION: 1. Cervical spondylosis. 2. No evidence of acute fracture or acute traumatic subluxation. alecai [] POS: [facility]
--- NOTE | 2017-11-26 08:43 | CT ---
PRELIMINARY REPORT/[facility]/EMERGENTY AFTER-HOURS PROCEDURE CT Head Without Intravenous Contrast EXAM DATE/TIME: 11/26/2017 2:08 AM CLINICAL HISTORY: 47 years old, male; Signs and symptoms; Altered mental status/memory loss; Confusion or disorientatio n; Patient HX: 47 y/o m was brought to the ed by ems due to mental status changes. He reports using m eth and drinking alcohol. He has no si/hi. Ems reported that he was having auditory and visual halluc inations. TECHNIQUE: Axial computed tomography images of the head/brain without intravenous contrast. COMPARISON: No relevant prior studies available. FINDINGS: Brain: Normal. No hemorrhage. No significant white matter disease. No edema. Ventricles: Normal. No ventriculomegaly. Bones/joints: Normal. No acute fracture. Sinuses: Normal as visualized. No acute sinusitis. Mastoid air cells: Normal as visualized. No mastoid effusion. Soft tissues: Normal. IMPRESSION: No acute findings. Thank you for allowing us to participate in the care of your patient. Dictated and Authenticated by: Alessandro Benavides MD 11/26/2017 2:36 AM Central Time ([place] & [place]) FINAL REPORT CT HEAD NONCONTRAST PERFORMED ON AN EMERGENCY BASIS: Date: 11/26/17 Time: 0210 hours HISTORY: Altered mental status. COMPARISON: 09/17/17. FINDINGS: Findings agree with the preliminary report by [facility]. No acute intracranial abnormalities are demonstra memo on noncontrast CT head. POS: [facility]
[2017-11-26 10:43] VITALS: BMI 22.6
[2017-11-26] MEDS ORDERED: Potassium Chloride 20 MEQ TAB PO SCH (11:00)
[2017-11-26] MEDS: Potassium Chloride 20 MEQ in Premix Bag 1 BAG IVPB SCH ×2 (11:07→11:08)
[2017-11-26] MEDS ORDERED: Ondansetron ODT 4 MG TAB PO PRN (13:34)
[2017-11-26] MEDS ORDERED: Ondansetron HCl/PF 4 MG/2 ML Vial IVP PRN (13:34)
[2017-11-26 15:17] LABS: Anion Gap 11 mmol/L (10-20); BUN (Urea Nitrogen) 18 mg/dL (8.9-20.6); Calc. Creatinine Clearance 115 mL/min (70-130); Calcium 8.7 mg/dL (7.8-10.44); Carbon Dioxide 25 mmol/L (22-29); Chloride 106 mmol/L (98-107); Estimated GFR-MDRD Greater than 90; Glucose 88 mg/dL (70-105); Potassium 3.7 mmol/L (3.5-5.1); Sodium 138 mmol/L (136-145)
--- NOTE | 2017-11-26 15:57 | SS ---
PRIMARY CARE PHYSICIAN: None. DATE OF ADMISSION: 11/26/2017 DATE OF DISCHARGE: 11/26/2017 DISCHARGE DIAGNOSES: 1. Hyperkalemia. 2. Polysubstance abuse. 3. Metabolic encephalopathy secondary to amphetamines. 4. Social chaos. 5. Depression. CONSULTATIONS: None. PROCEDURES: None. HISTORY OF PRESENT ILLNESS: Mr. Lee is a 47-year-old male who presented to the emergency [facility] for evaluation collections rep 11/26/2017 for mental status changes. The patient was using meth and drinking alcohol. No suicidal ideation or homicidal ideation. He is having some auditory and vi sual hallucinations and EMS was activated. They brought him to the emergency department for evaluati on. On arrival, vital signs were normal. Laboratory work was normal except for a potassium of 2.9 a nd the patient started to wake up more. We were subsequently called for his hypokalemia. He had no EKG changes, no chest pain, shortness of breath, fevers, chills or nausea. HOSPITAL COURSE: The patient was placed in observation. He was given 40 mg of IV potassium in the e mergency department and another 40 mEq on arrival to the floor. Repeat potassium checked at 1500 was normal at 3.7. The patient's mental status had returned to baseline, though he preferred to just sl eep and not really answer questions and the patient was subsequently discharged. PHYSICAL EXAMINATION: The patient was seen and examined on the day of discharge. GENERAL: He is awake. He is alert. He is oriented x3. He is a thin, cachectic-looking male who wa s in no distress. HEENT: Normocephalic, atraumatic. Pupils are equal, react to light bilaterally, mucous membrane ever st. No visible lesions or thrush. LUNGS: Clear. CARDIOVASCULAR: Normal cardiac and regular. Normal S1 and S2. No S3 or S4. No audible murmurs. ABDOMEN: Soft, is nontender, nondistended, no mass or organomegaly. EXTREMITIES: No cyanosis, clubbing, no edema. SKIN: Warm and well perfused. He had some tattoos. No rashes or lesions. MUSCULOSKELETAL: Normal to inspection. Large joints appear normal. There is no evidence of inflamm ation or palpable effusions. NEUROLOGIC: Cranial nerves II through XII are grossly intact. He has a normal speech pattern. He h as no focal deficits, 5/5 strength. LABORATORY DATA: CBC on presentation showed a white count of 8.1, hemoglobin 12.9, hematocrit of 35. 5, and platelet count is 239,000 with normal differential. Initial chemistry shows sodium 135, potas sium 2.9, chloride 100, bicarbonate 22, BUN 21, creatinine 0.86. Liver functions and AST and ALT bar soledad elevated at 60 and 0.62. CK was 415 and CK-MB of 8.3. Troponin was undetectable less than 0.010 . Repeat chemistries showed a basic metabolic profile completely normal with a potassium of 3.7. Plasma alcohol was less than 10. Urine drug screen was requested, but not done. CT scan of the brain and cervical spine showed no acute abnormalities, no fractures. DISCHARGE CONDITION: Stable. DISPOSITION: The patient will be discharged to home via private vehicle. He currently states he is homeless. DISCHARGE ACTIVITY: As tolerated. DISCHARGE DIET: Heart healthy recommended. Recommended to abstain from methamphetamines and alcohol . FOLLOWUP: The patient was encouraged to contact the [facility] for possible followup.
[2017-11-26] MEDS: Famotidine 20 MG TAB PO SCH (21:33)
[2017-11-27] MEDS ORDERED: Adenosine 6 MG/2 ML VIAL ONE (05:20)
[2017-11-27] MEDS: Acetaminophen 325 MG TAB PO PRN ×2 (07:50→13:07)
[2017-11-27] MEDS: Famotidine 20 MG TAB PO SCH ×2 (07:50→20:50)
--- NOTE | 2017-11-27 13:30 | PDOC.PN ---
- Subjective Encounter Start Date: 11/27/17 Encounter Start Time: 11:00 PT admitted and discharged yesterday. after discharge, pt wanted to talk to me , i was out of the building so talked tohim on the phone, he announced that if he left ho would kill the capo that took his stuff then kill his self. D/C held and MR consulted No acute events overnight, transferred to [facility] Seen by [facility] today, recommended inpatient admission, placed on [facility] wait list - Objective Resuscitation Status: Resuscitation Status FULL:Full Resuscitation MAR Reviewed: Yes Vital Signs & Weight: Vital Signs (12 hours) Temp Pulse Resp BP Pulse Ox 11/27/17 11:49 98 11/27/17 11:14 97.8 F 65 18 118/73 11/27/17 08:10 97.6 F 54 L 16 11/27/17 07:58 97.6 F 54 L 16 121/76 94 L 11/27/17 04:00 97.9 F 64 18 107/53 L 96 Weight Weight 144 lb 7 oz I&O: 11/26/17 11/27/17 11/28/17 06:59 06:59 06:59 Intake Total 1200 Balance 1200 Result Diagrams: 11/26/17 01:15 11/26/17 14:51 Phys Exam - Physical Examination Constitutional: NAD HEENT: PERRLA, moist MMs, sclera anicteric, oral pharynx no lesions Neck: no nodes, no JVD, supple, full ROM Respiratory: no wheezing, no rales, no rhonchi, clear to auscultation bilateral Cardiovascular: RRR, no significant murmur, no rub Gastrointestinal: soft, non-tender, no distention, positive bowel sounds Musculoskeletal: no edema, pulses present Neurological: non-focal, normal sensation, moves all 4 limbs Lymphatic: no nodes Skin: no rash, normal turgor, cap refill <2 seconds Dx/Plan (1) Hypokalemia Code(s): E87.6 - HYPOKALEMIA Status: Resolved Comment: K-Dur 40meq BID, resolving, d/c KCL (2) Polysubstance abuse Code(s): F19.10 - OTHER PSYCHOACTIVE SUBSTANCE ABUSE, UNCOMPLICATED Status: Acute Comment: [facility] consult for resources, recommendations for inpatient psych care and awaiting [place] approval (3) Suicidal ideation Code(s): R45.851 - SUICIDAL IDEATIONS Status: Acute Comment: Sitter 1:1, [facility] evaluation recommends inpt psych. (4) Bipolar disorder Code(s): F31.9 - BIPOLAR DISORDER, UNSPECIFIED Status: Chronic Qualifiers: Active/Remission status: remission status unspecified Qualified Code(s): F31.9 - Bipolar disorder, unspecified (5) Hepatitis C Code(s): B19.20 - UNSPECIFIED VIRAL HEPATITIS C WITHOUT HEPATIC COMA Status: Chronic Qualifiers: Viral hepatitis chronicity: chronic Hepatic coma status: without hepatic coma Qualified Code(s): B18.2 - Chronic viral hepatitis C (6) Seizure disorder Code(s): G40.909 - EPILEPSY, UNSP, NOT INTRACTABLE, WITHOUT STATUS EPILEPTICUS Status: Chronic (7) Alcohol abuse Code(s): F10.10 - ALCOHOL ABUSE, UNCOMPLICATED Status: Suspected - Plan cont current plan of care, licensed social worker * .
[2017-11-28 04:55] LABS: #Basophils 0.1 thou/uL (0.0-0.2); #Eosinphils 0.2 thou/uL (0.0-0.7); #Lymphocytes 2.6 thou/uL (1.20-3.40); #Monocytes 0.6 thou/uL (0.11-0.59); #Neutrophils 2.1 thou/uL (1.40-6.50); %Basophils 1.3 % (0.0-1.0); %Eosinophils 3.9 % (0.0-10.0); %Lymphocytes 46.7 % (21.0-51.0); %Monocytes 10.1 % (0.0-10.0); Hemoglobin 12.4 g/dL (14.0-18.0); Mean Corpuscular HGB CONC 34.6 g/dL (32.0-36.0); Mean Corpuscular Hemoglobin 34.3 pg (27.0-31.0); Mean Corpuscular Volume 99.3 fL (78.0-98.0); Platelet Count 217 thou/uL (130-400); RBC Distribution Width 12.2 % (11.5-14.5); Red Blood Cell (RBC) Count 3.62 mill/uL (4.70-6.10); White Blood Cell (WBC) Count 5.5 thou/uL (4.8-10.8)
[2017-11-28 05:08] LABS: Anion Gap 8 mmol/L (10-20); BUN (Urea Nitrogen) 9 mg/dL (8.9-20.6); Calc. Creatinine Clearance 115 mL/min (70-130); Calcium 8.8 mg/dL (7.8-10.44); Carbon Dioxide 29 mmol/L (22-29); Chloride 106 mmol/L (98-107); Estimated GFR-MDRD Greater than 90; Glucose 92 mg/dL (70-105); Magnesium 1.8 mg/dL (1.6-2.6); Potassium 3.8 mmol/L (3.5-5.1); Sodium 139 mmol/L (136-145)
[2017-11-28] MEDS: Famotidine 20 MG TAB PO SCH ×2 (08:17→20:18)
[2017-11-28] MEDS: Acetaminophen 325 MG TAB PO PRN ×2 (09:35→20:18)
--- NOTE | 2017-11-28 11:02 | PDOC.PN ---
- Subjective Encounter Start Date: 11/28/17 Encounter Start Time: 09:30 Pt eating well,. drinking multiple soft drinks daily. awaiitng bed at [facility] No F/C, no N/V/d/c No acute events all systems reviewed and neg for all except as per HPI - Objective Resuscitation Status: Resuscitation Status FULL:Full Resuscitation MAR Reviewed: Yes Vital Signs & Weight: Vital Signs (12 hours) Temp Pulse Resp BP Pulse Ox 11/28/17 08:17 97.2 F L 64 20 11/28/17 08:00 97.2 F L 64 20 138/79 99 Weight Weight 144 lb 7 oz I&O: 11/27/17 11/28/17 11/29/17 06:59 06:59 06:59 Intake Total 1200 3120 Balance 1200 3120 Result Diagrams: 11/28/17 04:22 11/28/17 04:22 Phys Exam - Physical Examination Constitutional: NAD HEENT: PERRLA, moist MMs, sclera anicteric, oral pharynx no lesions Neck: no nodes, no JVD, supple, full ROM Respiratory: no wheezing, no rales, no rhonchi, clear to auscultation bilateral Cardiovascular: RRR, no significant murmur, no rub Gastrointestinal: soft, non-tender, no distention, positive bowel sounds Musculoskeletal: no edema, pulses present Neurological: non-focal, normal sensation, moves all 4 limbs Lymphatic: no nodes Skin: no rash, normal turgor, cap refill <2 seconds Dx/Plan (1) Hypokalemia Code(s): E87.6 - HYPOKALEMIA Status: Resolved Comment: K-Dur 40meq BID, resolved, d/c KCL (2) Polysubstance abuse Code(s): F19.10 - OTHER PSYCHOACTIVE SUBSTANCE ABUSE, UNCOMPLICATED Status: Acute Comment: [facility] consult for resources, recommendations for inpatient psych care and awaiting [place] approval (3) Suicidal ideation Code(s): R45.851 - SUICIDAL IDEATIONS Status: Acute Comment: Sitter 1:1, [facility] evaluation recommends inpt psych. (4) Bipolar disorder Code(s): F31.9 - BIPOLAR DISORDER, UNSPECIFIED Status: Chronic Qualifiers: Active/Remission status: remission status unspecified Qualified Code(s): F31.9 - Bipolar disorder, unspecified (5) Hepatitis C Code(s): B19.20 - UNSPECIFIED VIRAL HEPATITIS C WITHOUT HEPATIC COMA Status: Chronic Qualifiers: Viral hepatitis chronicity: chronic Hepatic coma status: without hepatic coma Qualified Code(s): B18.2 - Chronic viral hepatitis C (6) Seizure disorder Code(s): G40.909 - EPILEPSY, UNSP, NOT INTRACTABLE, WITHOUT STATUS EPILEPTICUS Status: Chronic (7) Alcohol abuse Code(s): F10.10 - ALCOHOL ABUSE, UNCOMPLICATED Status: Suspected - Plan * .
[2017-11-29] MEDS: Famotidine 20 MG TAB PO SCH ×2 (08:53→20:50)
[2017-11-29] MEDS: Acetaminophen 325 MG TAB PO PRN ×2 (08:55→20:49)
[2017-11-29] MEDS ORDERED: clonazePAM 0.5 MG TAB PO SCH (09:30)
[2017-11-29] MEDS ORDERED: Gabapentin 400 MG CAP PO SCH (10:00)
[2017-11-29] MEDS ORDERED: clonazePAM 1 MG TAB PO SCH (10:00)
[2017-11-29] MEDS ORDERED: carBAMazepine 200 MG TAB PO SCH (10:00)
--- NOTE | 2017-11-29 12:40 | PDOC.PN ---
- Subjective Encounter Start Date: 11/29/17 Encounter Start Time: 09:30 - Objective Resuscitation Status: Resuscitation Status FULL:Full Resuscitation Vital Signs & Weight: Vital Signs (12 hours) Temp Pulse Resp BP Pulse Ox 11/29/17 11:18 98.0 F 83 20 128/69 95 11/29/17 08:00 97.9 F 59 L 20 11/29/17 07:20 97.9 F 59 L 20 131/93 H 98 Weight Weight 144 lb 7 oz I&O: 11/28/17 11/29/17 11/30/17 06:59 06:59 06:59 Intake Total 3120 3240 160 Balance 3120 3240 160 Result Diagrams: 11/28/17 04:22 11/28/17 04:22 Phys Exam - Physical Examination Constitutional: NAD HEENT: PERRLA, moist MMs, sclera anicteric, oral pharynx no lesions Neck: no nodes, no JVD, supple, full ROM Respiratory: no wheezing, no rales, no rhonchi, clear to auscultation bilateral Cardiovascular: RRR, no significant murmur Gastrointestinal: soft, non-tender, no distention, positive bowel sounds Musculoskeletal: no edema Neurological: non-focal, normal sensation, moves all 4 limbs Lymphatic: no nodes Psychiatric: normal affect, A&O x 3 Skin: no rash, normal turgor, cap refill <2 seconds Dx/Plan (1) Polysubstance abuse Code(s): F19.10 - OTHER PSYCHOACTIVE SUBSTANCE ABUSE, UNCOMPLICATED Status: Acute Comment: [facility] consult for resources, recommendations for inpatient psych care and awaiting [facility] approval (2) Suicidal ideation Code(s): R45.851 - SUICIDAL IDEATIONS Status: Acute Comment: [facility] 1:1, [facility] evaluation recommends inpt psych. (3) Bipolar disorder Code(s): F31.9 - BIPOLAR DISORDER, UNSPECIFIED Status: Chronic Qualifiers: Active/Remission status: remission status unspecified Qualified Code(s): F31.9 - Bipolar disorder, unspecified (4) Hepatitis C Code(s): B19.20 - UNSPECIFIED VIRAL HEPATITIS C WITHOUT HEPATIC COMA Status: Chronic Qualifiers: Viral hepatitis chronicity: chronic Hepatic coma status: without hepatic coma Qualified Code(s): B18.2 - Chronic viral hepatitis C (5) Seizure disorder Code(s): G40.909 - EPILEPSY, UNSP, NOT INTRACTABLE, WITHOUT STATUS EPILEPTICUS Status: Chronic (6) Alcohol abuse Code(s): F10.10 - ALCOHOL ABUSE, UNCOMPLICATED Status: Suspected (7) Hypokalemia Code(s): E87.6 - HYPOKALEMIA Status: Resolved Comment: K-Dur 40meq BID, resolved, d/c KCL - Plan cont current plan of care, PT/OT * . to [facility] when bed available
[2017-11-29] MEDS ORDERED: Non-Formulary Item 1 EACH (Gabapentin [Gabapentin] 1 TAB) PO SCH (15:00)
[2017-11-29] MEDS: Gabapentin 400 MG CAP PO SCH ×2 (16:42→20:55)
[2017-11-29] MEDS: clonazePAM 1 MG TAB PO SCH (20:50)
[2017-11-29] MEDS: carBAMazepine 200 MG TAB PO SCH (20:50)
[2017-11-29] MEDS ORDERED: carBAMazepine 100 mg Chewable Tablet PO SCH (21:00)
[2017-11-30] MEDS: Gabapentin 400 MG CAP PO SCH ×3 (08:42→20:02)
[2017-11-30] MEDS: Famotidine 20 MG TAB PO SCH ×2 (08:43→20:03)
[2017-11-30] MEDS: clonazePAM 1 MG TAB PO SCH ×3 (08:44→20:03)
[2017-11-30] MEDS: carBAMazepine 200 MG TAB PO SCH ×2 (11:08→20:03)
--- NOTE | 2017-11-30 14:14 | PDOC.PN ---
- Subjective Encounter Start Date: 11/30/17 Encounter Start Time: 10:45 no events, no new complaints. Now saying he doesnt want to go to [facility]. no F/C, no N/V/d/c, no CP or SOB All systems reviewed and neg x as above - Objective Resuscitation Status: Resuscitation Status FULL:Full Resuscitation MAR Reviewed: Yes Vital Signs & Weight: Vital Signs (12 hours) Temp Pulse Resp BP BP Pulse Ox 11/30/17 08:00 97.5 F L 86 20 125/86 125/86 99 Weight Weight 144 lb 7 oz I&O: 11/29/17 11/30/17 12/01/17 06:59 06:59 06:59 Intake Total 3240 3240 Balance 3240 3240 Result Diagrams: 11/28/17 04:22 11/28/17 04:22 Phys Exam - Physical Examination Constitutional: NAD HEENT: PERRLA, moist MMs, sclera anicteric, oral pharynx no lesions Neck: no nodes, no JVD, supple, full ROM Respiratory: clear to auscultation bilateral Cardiovascular: RRR, no significant murmur Gastrointestinal: soft, non-tender, no distention, positive bowel sounds Musculoskeletal: no edema, pulses present Neurological: non-focal, normal sensation, moves all 4 limbs Lymphatic: no nodes Psychiatric: normal affect, A&O x 3 Skin: no rash, normal turgor, cap refill <2 seconds Dx/Plan (1) Polysubstance abuse Code(s): F19.10 - OTHER PSYCHOACTIVE SUBSTANCE ABUSE, UNCOMPLICATED Status: Acute Comment: [facility] consult for resources, recommendations for inpatient psych care and awaiting [facility] approval, pt now not wanting to go to [facility] - explained this is not voluntary (2) Suicidal ideation Code(s): R45.851 - SUICIDAL IDEATIONS Status: Acute Comment: [facility]itter 1:1, [facility] evaluation recommends inpt psych. (3) Bipolar disorder Code(s): F31.9 - BIPOLAR DISORDER, UNSPECIFIED Status: Chronic Qualifiers: Active/Remission status: currently active (4) Hepatitis C Code(s): B19.20 - UNSPECIFIED VIRAL HEPATITIS C WITHOUT HEPATIC COMA Status: Chronic Qualifiers: Viral hepatitis chronicity: chronic Hepatic coma status: without hepatic coma Qualified Code(s): B18.2 - Chronic viral hepatitis C (5) Seizure disorder Code(s): G40.909 - EPILEPSY, UNSP, NOT INTRACTABLE, WITHOUT STATUS EPILEPTICUS Status: Chronic (6) Alcohol abuse Code(s): F10.10 - ALCOHOL ABUSE, UNCOMPLICATED Status: Suspected (7) Hypokalemia Code(s): E87.6 - HYPOKALEMIA Status: Resolved Comment: K-Dur 40meq BID, resolved, d/c KCL - Plan * .
[2017-12-01] MEDS: carBAMazepine 200 MG TAB PO SCH ×2 (09:06→19:48)
[2017-12-01] MEDS: Famotidine 20 MG TAB PO SCH ×2 (09:06→19:48)
[2017-12-01] MEDS: clonazePAM 1 MG TAB PO SCH ×3 (09:06→19:48)
[2017-12-01] MEDS: Gabapentin 400 MG CAP PO SCH ×3 (09:06→19:48)
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
[2017-12-02] MEDS: Famotidine 20 MG TAB PO SCH ×2 (08:07→21:17)
[2017-12-02] MEDS: clonazePAM 1 MG TAB PO SCH ×3 (08:07→21:17)
[2017-12-02] MEDS: carBAMazepine 200 MG TAB PO SCH ×2 (08:07→21:17)
[2017-12-02] MEDS: Gabapentin 400 MG CAP PO SCH ×3 (08:13→21:17)
[2017-12-02] MEDS ORDERED: Lorazepam 1 MG TAB PO SCH (12:15)
--- NOTE | 2017-12-02 18:38 | PRG ---
DATE OF SERVICE: 12/02/2017 SUBJECTIVE: The patient feels like he is becoming more anxious. He says that he is starting to hear voices in his head. He states that he has a chip implanted in his head and he cannot control when t gerardo decided to bring on the voices and when not. OBJECTIVE: VITAL SIGNS: Temperature 97.6, pulse 85-101, respirations 16, O2 sat 100%, blood pressure 132/81. GENERAL: Age appropriate male. He is in no distress. The patient is a little bit wobbly on his fee t at the moment, but he is conversant. HEENT: PERRL. No OP lesions. HEART: Regular rate and rhythm. LUNGS: Clear bilaterally. ABDOMEN: Soft, nontender. IMPRESSION AND PLAN: 1. Suicidal/homicidal ideation. The patient is awaiting placement at the [facility] per the recommendations of [facility]. We will give him a little more benzodiazepine. In the past, the patien t started acting out about this time. The patient has a habit of running out of his psych meds that he gets prescribed and then turns to street drugs. He then ends up in the hospital and then a few da ys starts having more symptoms that tend to compel the use more benzodiazepines, which in turn makes him happy. The patient needs to be transferred to a psych facility and better outpatient followup es tablished going forward. 2. History of bipolar disorder as above. 3. History of hepatitis C, stable. 4. History of seizure disorder, stable. 5. Hypokalemia, resolved.
[2017-12-02] MEDS ORDERED: Lorazepam 0.5 MG TAB PO SCH (20:00)
[2017-12-03] MEDS: Gabapentin 400 MG CAP PO SCH ×3 (08:26→21:00)
[2017-12-03] MEDS: carBAMazepine 200 MG TAB PO SCH ×2 (08:27→21:00)
[2017-12-03] MEDS: Famotidine 20 MG TAB PO SCH ×2 (08:27→21:00)
[2017-12-03] MEDS: clonazePAM 1 MG TAB PO SCH ×3 (08:27→21:00)
[2017-12-03] MEDS ORDERED: diphenhydrAMINE 25 MG CAP PO PRN (16:35)
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
[2017-12-03] MEDS: Lorazepam 0.5 MG TAB PO SCH ×2 (19:45→20:02)
[2017-12-04 07:39] VITALS: BP 130/83; TEMP 98.2
[2017-12-04] MEDS: Gabapentin 400 MG CAP PO SCH ×2 (08:53→14:07)
[2017-12-04] MEDS: Famotidine 20 MG TAB PO SCH (08:53)
[2017-12-04] MEDS: clonazePAM 1 MG TAB PO SCH ×2 (08:53→14:07)
[2017-12-04] MEDS: carBAMazepine 200 MG TAB PO SCH (08:54)
[2017-12-04] MEDS ORDERED: Lorazepam 1 MG TAB PO SCH (16:30)
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
== END 2017-12-04 20:13 ==
LOC: ERS 00:57 → ERHOLD 07:24 → INTOOBSV 07:24 → 2SW 10:33 → T4-A 20:47
PROVIDERS: ADMIT Internal Medicine Infectious Disease; ATTEND Internal Medicine Infectious Disease
DX: R41.82 Altered mental status, unspecified (principal); R45.851 Suicidal ideations; R45.850 Homicidal ideations; F15.951 Other stimulant use, unspecified with stimulant-induced psychotic disorder with hallucinations; F15.988 Other stimulant use, unspecified with other stimulant-induced disorder; G93.41 Metabolic encephalopathy; E87.5 Hyperkalemia; E87.6 Hypokalemia; F31.9 Bipolar disorder, unspecified; B18.2 Chronic viral hepatitis C; G40.909 Epilepsy, unspecified, not intractable, without status epilepticus; F10.151 Alcohol abuse with alcohol-induced psychotic disorder with hallucinations; Z79.899 Other long term (current) drug therapy; Z88.5 Allergy status to narcotic agent; Z88.8 Allergy status to other drugs, medicaments and biological substances
CPT/HCPCS: 36415; 70450; 72125; 80048; 80053; 80307; 82550; 82553; 83735; 84484; 85025; 96361; 96365; 96366; 96375; A4216; G0378; J0153; J2060; J3480